=== PATIENT | female | born 1995 | race Caucasian/White ===

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

== ENCOUNTER 2017-02-02 19:50 | Inpatient (IN) | payer MEDICAID, OTHER ==
[~2017-02-02] VITALS: Ht 147.3 cm; Wt 49.9 kg
[~2017-02-02 19:50] MED LIST changes: +IRON65TA11 PO; -PNV PRENATAL HE1 TAB PO; +PREN1SGL25 PO
[2017-02-02 19:57] VITALS: BP 122/61
[2017-02-02 20:20] LABS: BASOPHILS # (AUTO) 0.3 K/uL (0.00-0.22); BASOPHILS % (AUTO) 2.7 % (0.0-2.0); EOSINOPHILS # (AUTO) 0.2 K/uL (0-0.4); EOSINOPHILS % (AUTO) 2.1 % (0.0-4.0); HEMATOCRIT 39.1 % (36-48); HEMOGLOBIN 13.1 g/dL (12.0-16.0); LYMPHOCYTES % (AUTO) 17.8 % (20.5-51.1); MEAN CORPUSCULAR HEMOGLOBIN 28 pg (27-31); MEAN CORPUSCULAR HGB CONC 34 g/dL (33-37); MEAN CORPUSCULAR VOLUME 84 fL (80-94); MONOCYTES # (AUTO) 0.4 K/uL (0.8-1.0); MONOCYTES % (AUTO) 3.3 % (1.7-9.3); NEUTROPHILS # (AUTO) 8.4 K/uL (1.8-7.7); NEUTROPHILS % (AUTO) 74.1 % (42.2-75.2); PLATELET COUNT (AUTO) 325 K/uL (140-450); RED BLOOD CELL COUNT(AUTO) 4.64 MIL/uL (4.20-5.40); WHITE BLOOD COUNT (AUTO) 11.3 K/uL (4.5-11.0)
[2017-02-02 20:30] LABS: CALCIUM 8.7 mg/dL (8.5-10.1); CARBON DIOXIDE 27.8 mmol/L (21-32); CREATININE 0.7 mg/dL (0.6-1.3); POTASSIUM 3.8 mmol/L (3.5-5.1)
[2017-02-02 20:37] LABS: ALBUMIN 4.2 g/dL (3.4-5.0); TOTAL BILIRUBIN 0.3 mg/dL (0.0-1.0); TOTAL PROTEIN, SERUM 7.9 g/dL (6.4-8.2)
[2017-02-02 23:11] LABS: APPEARANCE,URINE HAZY (CLEAR); BILIRUBIN,URINE NEGATIVE (NEGATIVE); BLOOD, URINE 3+ (NEGATIVE); COLOR,URINE YELLOW (YELLOW); LEUKOCYTE ESTERASE ,URINE NEGATIVE (NEGATIVE); NITRITE, URINE NEGATIVE (NEGATIVE); PROTEIN,URINE NEGATIVE (NEGATIVE); UGLUCOSE NEGATIVE (NEGATIVE); UROBILINOGEN,URINE 0.2 EU/dL (0.2 - 1)
[2017-02-02 23:42] LABS: INR 1.1 (0.8-1.2); PROTHROMBIN TIME 10.9 secs (10.8-13.4)
[2017-02-02 23:43] LABS: BACTERIA,URINE 2+ /HPF (None Seen); RBC,URINE 3-10 (FEW) /HPF (0-5); SQUAMOUS EPITHELIAL CELL,UR 4-10 (MOD) /LPF (0-3 (FEW))
[2017-02-02] MEDS ORDERED: MORPHINE SULFATE 4 MG/ML SYR IVP ONE (23:50)
[2017-02-03] VITALS (7 sets, daily range): BP systolic 103–126; BP diastolic 66–72
[2017-02-03] MEDS: NACL 0.9% 1,000 ML IV SCH ×4 (00:33→18:59)
[2017-02-03] MEDS ORDERED: HYDROcodone/APAP 7.5/325 MG 1 TAB PO PRN (00:35)
[2017-02-03] MEDS ORDERED: MORPHINE SULFATE 2 MG/ML SYR IVP PRN ×2 (00:35→09:50)
[2017-02-03] MEDS ORDERED: ACETAMINOPHEN 325 MG TAB PO PRN (00:35)
[2017-02-03] MEDS ORDERED: DOCUSATE SODIUM 100 MG GELCAP PO PRN (00:35)
[2017-02-03] MEDS ORDERED: ACETAMINOPHEN EXTRA STRENGTH 500 MG TAB PO ONE (00:45)
[2017-02-03 01:46] LABS: CHOL/HDL RATIO 2.5 (1-4.5); FREE T4 (FREE THYROXINE) 0.99 ng/dL (0.76-1.46); MAGNESIUM 2.2 mg/dL (1.8-2.4); PHOSPHORUS 4.3 mg/dL (2.5-4.9); THYROID STIMULATING HORMONE 0.92 uIU/mL (0.34-3.74)
[2017-02-03] MEDS ORDERED: KETOROLAC 15 MG/ML VIAL IVP SCH (02:00)
[2017-02-03] MEDS ORDERED: KETOROLAC 15 MG/ML VIAL ONE (02:11)
[2017-02-03] MEDS ORDERED: HYDROmorphone 1 MG/ML AMP IVP ONE (02:15)
[2017-02-03] MEDS ORDERED: HYDROmorphone 1 MG/ML AMP ONE (02:31)
[2017-02-03 07:16] LABS: BASOPHILS # (AUTO) 0.4 K/uL (0.00-0.22); BASOPHILS % (AUTO) 4.2 % (0.0-2.0); EOSINOPHILS # (AUTO) 0.2 K/uL (0-0.4); EOSINOPHILS % (AUTO) 2.3 % (0.0-4.0); HEMATOCRIT 36.8 % (36-48); HEMOGLOBIN 12.3 g/dL (12.0-16.0); LYMPHOCYTES % (AUTO) 33.6 % (20.5-51.1); MEAN CORPUSCULAR HEMOGLOBIN 28 pg (27-31); MEAN CORPUSCULAR HGB CONC 33 g/dL (33-37); MEAN CORPUSCULAR VOLUME 84 fL (80-94); MONOCYTES # (AUTO) 0.6 K/uL (0.8-1.0); MONOCYTES % (AUTO) 7.2 % (1.7-9.3); NEUTROPHILS # (AUTO) 4.7 K/uL (1.8-7.7); NEUTROPHILS % (AUTO) 52.7 % (42.2-75.2); PLATELET COUNT (AUTO) 256 K/uL (140-450); RED BLOOD CELL COUNT(AUTO) 4.36 MIL/uL (4.20-5.40); RED CELL DISTRIBUTION WIDTH 15.1 % (11.6-13.7); WHITE BLOOD COUNT (AUTO) 8.9 K/uL (4.5-11.0)
[2017-02-03 07:19] LABS: ANION GAP 9.5 (8-16); CALCIUM 8.2 mg/dL (8.5-10.1); CARBON DIOXIDE 27.1 mmol/L (21-32); CREATININE 0.6 mg/dL (0.6-1.3); POTASSIUM 3.6 mmol/L (3.5-5.1)
[2017-02-03] MEDS: ONDANSETRON 4 MG/2 ML VIAL IM/IVP PRN ×2 (08:04→18:30)
[2017-02-03] MEDS ORDERED: HYDROmorphone 1 MG/ML AMP IVP PRN ×2 (09:55→23:50)
[2017-02-03] MEDS ORDERED: METOCLOPRAMIDE 10 MG TAB PO PRN (14:05)
[2017-02-03] MEDS ORDERED: AZITHROMYCIN 250 MG TAB PO SCH (16:00)
[2017-02-03] MEDS ORDERED: HYDROmorphone 1 MG/ML AMP IVP SCH (21:20)
[2017-02-04 00:33] VITALS: BP 122/72
[2017-02-04] MEDS: NACL 0.9% 1,000 ML IV SCH (00:54)
[2017-02-04 04:15] VITALS: BP 95/53
[2017-02-04 06:01] VITALS: BP 101/64
[2017-02-04 06:04] LABS: BASOPHILS # (AUTO) 0.2 K/uL (0.00-0.22); BASOPHILS % (AUTO) 3.3 % (0.0-2.0); EOSINOPHILS # (AUTO) 0.2 K/uL (0-0.4); EOSINOPHILS % (AUTO) 2.7 % (0.0-4.0); HEMATOCRIT 37.1 % (36-48); HEMOGLOBIN 12.2 g/dL (12.0-16.0); LYMPHOCYTES # (AUTO) 2.2 K/uL (2.5-16.5); LYMPHOCYTES % (AUTO) 35.5 % (20.5-51.1); MEAN CORPUSCULAR HEMOGLOBIN 28 pg (27-31); MEAN CORPUSCULAR HGB CONC 33 g/dL (33-37); MEAN CORPUSCULAR VOLUME 85 fL (80-94); MONOCYTES # (AUTO) 0.4 K/uL (0.8-1.0); MONOCYTES % (AUTO) 6.4 % (1.7-9.3); NEUTROPHILS # (AUTO) 3.1 K/uL (1.8-7.7); NEUTROPHILS % (AUTO) 52.1 % (42.2-75.2); PLATELET COUNT (AUTO) 277 K/uL (140-450); RED BLOOD CELL COUNT(AUTO) 4.38 MIL/uL (4.20-5.40); RED CELL DISTRIBUTION WIDTH 15.2 % (11.6-13.7); WHITE BLOOD COUNT (AUTO) 6.1 K/uL (4.5-11.0)
[2017-02-04 06:29] LABS: ANION GAP 11.1 (8-16); CARBON DIOXIDE 25.2 mmol/L (21-32); CREATININE 0.7 mg/dL (0.6-1.3); POTASSIUM 4.3 mmol/L (3.5-5.1)
[2017-02-04 08:00] VITALS: BP 117/70
[2017-02-04] MEDS ORDERED: ACET-1182 PO (09:10)
[2017-02-04 12:00] VITALS: BP 110/68
[2017-02-05 06:40] LABS: HEMOGLOBIN A1C 5.3 % (4.8-5.6); T4 (THYROXINE) 6.6 ug/dL (4.5-12.0)
== END 2017-02-04 15:00 | disposition home or self-care (01) | DRG 564 ==
LOC: MED 19:50 → MTU 02-03 00:41
PROVIDERS: ADMIT Family Medicine; ATTEND Family Medicine
DX: O03.9 Complete or unspecified spontaneous abortion without complication (principal); D64.9 Anemia, unspecified; M53.3 Sacrococcygeal disorders, not elsewhere classified; F12.10 Cannabis abuse, uncomplicated; N93.8 Other specified abnormal uterine and vaginal bleeding
CPT/HCPCS: 36415; 76817; 80048; 80053; 81001; 82150; 83036; 83690; 83735; 83880; 84100; 84436; 84439; 84443; 84479; 84484; 84702; 85025; 85610; 85730; 86900; 86901; 87077; 87081; 87086; 87186; 93005; 96374; 99285; J1170; J1885; J2270; J2405; J7030; J7060; J8597; Q0092

== ENCOUNTER 2017-02-23 23:28 | Emergency (ER) | payer MEDICAID ==
[~2017-02-23] VITALS: Ht 149.9 cm; Wt 49.9 kg
[2017-02-23 23:40] VITALS: BP 108/83
--- NOTE | 2017-02-24 00:10 | NUR ---
AMBULATED TO ER BED 3
--- NOTE | 2017-02-24 00:52 | NUR ---
21Y/F PT. PRESNTS TO ED WITH C/O VAGINAL BLEEDING X 1 WK. PT. WAS SEEN BY ER MD AT [facility] [place], DISCHARGE WITH F/C WITH OB. AAO X4, AMBULATORY WITH STEDAY GAIT. RESPIRATIONS ROOM AIR, EVEN AND UNLABORED. ABDOMEN SOFT AND NON DISTENDED. ACTIVE BS X4. C/O PAIN 04/16. VSS, ER MD MADE AWARE OF PT. STATUS.
--- NOTE | 2017-02-24 01:13 | NUR ---
Patient being evaluated by DR. ARCE at bedside.
[2017-02-24 01:25] LABS: HEMATOCRIT 37.3 % (36-48); HEMOGLOBIN 12.3 g/dL (12.0-16.0); MEAN CORPUSCULAR HEMOGLOBIN 28 pg (27-31); MEAN CORPUSCULAR HGB CONC 33 g/dL (33-37); MEAN CORPUSCULAR VOLUME 85 fL (80-94); PLATELET COUNT (AUTO) 276 K/uL (140-450); RED CELL DISTRIBUTION WIDTH 13.2 % (11.6-13.7)
[2017-02-24 01:32] LABS: APPEARANCE,URINE CLOUDY (CLEAR); BILIRUBIN,URINE 1+ (NEGATIVE); BLOOD, URINE 3+ (NEGATIVE); COLOR,URINE YELLOW (YELLOW); LEUKOCYTE ESTERASE ,URINE TRACE (NEGATIVE); NITRITE, URINE POSITIVE (NEGATIVE); PH,URINE 5.5 (5.0-9.0); PROTEIN,URINE 1+ (NEGATIVE); UGLUCOSE NEGATIVE (NEGATIVE); UROBILINOGEN,URINE 0.2 EU/dL (0.2 - 1)
[2017-02-24 01:41] LABS: ALBUMIN 4.4 g/dL (3.4-5.0); ANION GAP 12.7 (8-16); CARBON DIOXIDE 25.7 mmol/L (21-32); CREATININE 0.7 mg/dL (0.6-1.3); POTASSIUM 3.4 mmol/L (3.5-5.1); TOTAL BILIRUBIN 0.4 mg/dL (0.0-1.0); TOTAL PROTEIN, SERUM 7.8 g/dL (6.4-8.2)
[2017-02-24 01:42] LABS: BACTERIA,URINE 3+ /HPF (None Seen); ICTOTEST NEGATIVE (NEGATIVE); RBC,URINE TOO NUMEROUS TO COUN /HPF (0-5)
[2017-02-24 01:43] LABS: MUCUS,URINE 2+ /LPF (None Seen)
[2017-02-24 01:48] LABS: EOSINOPHILS % (MANUAL) 2 % (0-4); LYMPHOCYTES % (MANUAL) 37 % (20-46); MONOCYTES % (MANUAL) 4 % (5-12); NEUTROPHILS % (MANUAL) 57 (43-65)
[2017-02-24] MEDS ORDERED: MORPHINE SULFATE 4 MG/ML SYR IM ONE (02:20)
[2017-02-24 02:45] VITALS: BP 111/69
--- NOTE | 2017-02-24 02:45 | NUR ---
Patient discharged with v/s stable. Written and verbal after care instructions given and explained. Patient alert, oriented and verbalized understanding of instructions. Ambulatory with steady gait. All questions addressed prior to discharge. ID band removed. Patient advised to follow up with PMD. Rx of NORCO 5/325 MG, MACROBID given. Patient educated on indication of medication including possible reaction and side effects. Opportunity to ask questions provided and answered.
== END 2017-02-24 02:45 | disposition home or self-care (01) ==
LOC: MED 23:28
DX: O03.9 Complete or unspecified spontaneous abortion without complication (principal)
CPT/HCPCS: 36415; 80053; 81001; 81025; 84702; 85025; 87086; 96372; 99284; J2270; 87186

== ENCOUNTER 2017-07-10 21:55 | Emergency (ER) | payer MEDICAID ==
[~2017-07-10] VITALS: Ht 149.9 cm; Wt 48.1 kg
[~2017-07-10 21:55] MED LIST changes: +FERR-252 PO; -IRON65TA11 PO
[2017-07-10 22:35] VITALS: BP 137/69
--- NOTE | 2017-07-10 22:55 | NUR ---
TO LOBBY, ARNALDO , A/W FOR XRAY AND BED , EBENEZER NOTED
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
[2017-07-11] MEDS ORDERED: IBUPROFEN 800 MG TAB PO ONE (00:25)
[2017-07-11 01:15] VITALS: BP 127/72
== END 2017-07-11 01:15 | disposition home or self-care (01) ==
LOC: MED 21:55
DX: S80.11XA Contusion of right lower leg, initial encounter (principal); V43.62XA Car passenger injured in collision with other type car in traffic accident, initial encounter; Y93.I9 Activity, other involving external motion; Y92.488 Other paved roadways as the place of occurrence of the external cause; Y99.8 Other external cause status
CPT/HCPCS: 73590; 81025; 99284

== ENCOUNTER 2019-08-31 06:05 | Emergency (ER) | payer MEDICAID ==
[~2019-08-31] VITALS: Ht 149.9 cm; Wt 49.9 kg
[2019-08-31 06:12] VITALS: BP 113/86
--- NOTE | 2019-08-31 06:13 | NUR ---
PT TAKEN TO BED 2
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
--- NOTE | 2019-08-31 07:11 | NUR ---
RECEIVED REPORT FROM PM SHIFT RN. PT SITTING IN BED. PT STATED SHE DOES NOT HAVE NAUSEA SYMPTOMS AT THIS TIME. ER MD AT BEDSIDE TO ASSESS PT.
[2019-08-31] MEDS: LORazepam 1 MG TAB PO ONE (07:34)
--- NOTE | 2019-08-31 07:37 | NUR ---
EKG AT BEDSIDE.
[2019-08-31 07:42] LABS: BASOPHILS # (AUTO) 0.1 K/uL (0.00-0.22); BASOPHILS % (AUTO) 0.6 % (0.0-2.0); EOSINOPHILS % (AUTO) 0.2 % (0.0-4.0); HEMATOCRIT 40.4 % (36-48); HEMOGLOBIN 14.2 g/dL (12.0-16.0); LYMPHOCYTES # (AUTO) 1.8 K/uL (2.5-16.5); LYMPHOCYTES % (AUTO) 19.8 % (20.5-51.1); MEAN CORPUSCULAR HEMOGLOBIN 32 pg (27-31); MEAN CORPUSCULAR HGB CONC 35 g/dL (33-37); MEAN CORPUSCULAR VOLUME 89.2 fL (80-94); MONOCYTES # (AUTO) 0.4 K/uL (0.8-1.0); MONOCYTES % (AUTO) 4.5 % (1.7-9.3); NEUTROPHILS # (AUTO) 6.7 K/uL (1.8-7.7); NEUTROPHILS % (AUTO) 74.9 % (42.2-75.2); PLATELET COUNT (AUTO) 321 K/uL (140-450); RED BLOOD CELL COUNT(AUTO) 4.52 MIL/uL (4.20-5.40); RED CELL DISTRIBUTION WIDTH 13.2 % (11.6-13.7)
--- NOTE | 2019-08-31 07:43 | NUR ---
NOTIFIED PT TO GET SOME URINE SAMPLE FOR US . PT NODDED HER HEAD. PT'S SISTER AT BEDSIDE.
[2019-08-31 07:48] LABS: ANION GAP 12.4 (8-16); CARBON DIOXIDE 25.8 mmol/L (21-32); CREATININE 0.8 mg/dL (0.6-1.3); POTASSIUM 3.2 mmol/L (3.5-5.1)
[2019-08-31 08:03] LABS: ALBUMIN 4.7 g/dL (3.4-5.0); THYROID STIMULATING HORMONE 2.38 uIU/mL (0.34-3.74); TOTAL BILIRUBIN 0.6 mg/dL (0.0-1.0)
--- NOTE | 2019-08-31 08:38 | NUR ---
PT STATED ANXIETY GETTING BETTER BUT STILL NO URINE YET. ENCOURAGED PT TO DRINK MORE WATER, PT HAS WATER IN HER HAND.
[2019-08-31 10:02] VITALS: BP 117/85
[2019-08-31 11:39] LABS: BARBITURATE, URINE NEG. ng/ml (NEG <=200); BENZODIAZEPINE, URINE NEG. ng/mL (NEG <=200); CANNABINOID, URINE POS. ng/mL (NEG <=50); COCAINE, URINE NEG. ng/mL (NEG <=300); OPIATE, URINE NEG. ng/mL (NEG <=2000); PHENCYCLIDINE SCREEN,URINE NEG. ng/mL (NEG <=25)
== END 2019-08-31 10:15 | disposition home or self-care (01) ==
LOC: MED 06:05
DX: F12.90 Cannabis use, unspecified, uncomplicated (principal); F15.90 Other stimulant use, unspecified, uncomplicated; R42 Dizziness and giddiness; Z79.899 Other long term (current) drug therapy
CPT/HCPCS: 36415; 71045; 80053; 80305; 81002; 81025; 84443; 85025; 93005; 99285; Q0092; 99284

== ENCOUNTER 2021-10-28 13:16 | Emergency (ER) | payer MEDICAID, OTHER ==
[~2021-10-28] VITALS: Ht 149.9 cm; Wt 51.3 kg
[2021-10-28 13:22] VITALS: BP 122/76
[2021-10-28 14:02] LABS: BASOPHILS % (AUTO) 0.4 % (0.0-2.0); EOSINOPHILS % (AUTO) 0.4 % (0.0-4.0); HEMATOCRIT 37.7 % (36-48); HEMOGLOBIN 13.1 g/dL (12.0-16.0); LYMPHOCYTES # (AUTO) 1.7 K/uL (2.5-16.5); LYMPHOCYTES % (AUTO) 17.5 % (20.5-51.1); MEAN CORPUSCULAR HEMOGLOBIN 32 pg (27-31); MEAN CORPUSCULAR HGB CONC 35 g/dL (33-37); MEAN CORPUSCULAR VOLUME 92.6 fL (80-94); MONOCYTES # (AUTO) 0.6 K/uL (0.8-1.0); MONOCYTES % (AUTO) 6.2 % (1.7-9.3); NEUTROPHILS # (AUTO) 7.5 K/uL (1.8-7.7); NEUTROPHILS % (AUTO) 75.5 % (42.2-75.2); PLATELET COUNT (AUTO) 288 K/uL (140-450); RED BLOOD CELL COUNT(AUTO) 4.08 MIL/uL (4.20-5.40); RED CELL DISTRIBUTION WIDTH 12.4 % (11.6-13.7); WHITE BLOOD COUNT (AUTO) 9.9 K/uL (4.8-10.8)
[2021-10-28] MEDS ORDERED: PYRIDOXINE 50 MG TAB PO SCH (14:20)
[2021-10-28] MEDS ORDERED: METOCLOPRAMIDE 10 MG/2 ML INJ VIAL IM SCH (14:20)
[2021-10-28 14:23] LABS: ALBUMIN 3.7 g/dL (3.4-5.0); ANION GAP 11.9 (8-16); CARBON DIOXIDE 27.1 mmol/L (21-32); CREATININE 0.6 mg/dL (0.6-1.3); TOTAL BILIRUBIN 0.4 mg/dL (0.0-1.0)
[2021-10-28 15:28] LABS: APPEARANCE,URINE CLEAR (CLEAR); BILIRUBIN,URINE 1+ (NEGATIVE); BLOOD, URINE NEGATIVE (NEGATIVE); COLOR,URINE YELLOW (YELLOW); LEUKOCYTE ESTERASE ,URINE TRACE (NEGATIVE); NITRITE, URINE NEGATIVE (NEGATIVE); UGLUCOSE TRACE (NEGATIVE)
[2021-10-28] MEDS ORDERED: ACETAMINOPHEN 325 MG TAB PO ONE (15:45)
[2021-10-28] MEDS ORDERED: PYRI25TA15 PO (15:49)
[2021-10-28] MEDS ORDERED: PHE25S RC (15:49)
[2021-10-28] MEDS ORDERED: CEPH-588 PO (15:49)
[2021-10-28] MEDS ORDERED: DOXY25TA61 PO (15:49)
[2021-10-28 16:09] VITALS: BP 107/58
== END 2021-10-28 16:09 | disposition home or self-care (01) ==
LOC: MED 13:16
DX: O21.8 Other vomiting complicating pregnancy (principal); O26.891 Other specified pregnancy related conditions, first trimester; R10.2 Pelvic and perineal pain; Z3A.01 Less than 8 weeks gestation of pregnancy; Z79.899 Other long term (current) drug therapy
CPT/HCPCS: 36415; 76801; 80053; 81003; 81025; 83690; 84702; 85025; 87086; 96372; 99284; J2765; Q0092